=== PATIENT | male | born 1975 | race African-American/Black ===

== ENCOUNTER 2018-01-21 14:35 | Emergency (ER) | payer OTHER ==
[2018-01-21 15:08] VITALS: BP 149/100
--- NOTE | 2018-01-21 16:18 | UC ---
Laceration HPI - HPI Summary HPI Summary: 42 gentleman c/o Head laceration, occurred this afternoon at work. He stood up , striking top of head against metal pipes. No loc. No vis / aud changes. No other pain c/o, no report neck pain. Pain at head at site of lac. - History Of Current Complaint Chief Complaint: UCHeadInjury Stated Complaint: HEAD INJURY Time Seen by Provider: 01/21/18 16:17 Hx Obtained From: Patient Pain Intensity: 8 - Allergies/Home Medications Allergies/Adverse Reactions: Allergies Allergy/AdvReac Type Severity Reaction Status Date / Time No Known Allergies Allergy Verified 01/21/18 15:09 PMH/Surg Hx/FS Hx/Imm Hx Previously Healthy: Yes - Surgical History Surgical History: None - Family History Known Family History: Positive: Unknown - Social History Alcohol Use: None Substance Use Type: None Smoking Status (MU): Never Smoked Tobacco Review of Systems Constitutional: Negative Skin: Other - see hpi Eyes: Negative ENT: Negative Respiratory: Negative Cardiovascular: Negative Gastrointestinal: Negative Genitourinary: Negative Motor: Other - see hpi Neurovascular: Other - see hpi Musculoskeletal: Negative Neurological: Negative Psychological: Negative Is Patient Immunocompromised?: No All Other Systems Reviewed And Are Negative: Yes Physical Exam Triage Information Reviewed: Yes Appearance: Well-Appearing, Well-Nourished Vital Signs: Initial Vital Signs Temp 98.7 F 01/21/18 15:05 Pulse 88 01/21/18 15:05 Resp 18 01/21/18 15:05 BP 149/100 01/21/18 15:05 Pulse Ox 100 01/21/18 15:05 Vital Signs Reviewed: Yes Eye Exam: Normal - grossly normal ENT Exam: Normal - grossly normal Neck exam: Normal Neck: Positive: Supple, Nontender Respiratory Exam: Normal - no tachypnea, no dyspnea RR regular Cardiovascular Exam: Normal - HR regular. Nondiaphoretic. Abdominal Exam: Normal - sitting up, no c/o Musculoskeletal Exam: Normal - moves x 4 ext's. gait steady. Neurological Exam: Normal - CN 1-12 intact + sense smell Facial expressions symmetric. Psychological Exam: Normal - conversing easily and appropriately Skin Exam: Other - Laceration on top of head. L 3cm x W 0.3cm x depth 0.5cm. Lac is F-shaped, with Lateral lac approx 2cm. No bone visible, palpable by probe Bleeding controlled, oozing with examination. Laceration Course/Dx - Course/Dx Course Of Treatment: Laceration repair. Irrigated by RN. Time out performed. Local anesthesia with 6cc 2% lidocaine, no epi. [place] # 7 applied. Tolerated procedure well. Bandage applied by RN. Reviewed wound instructions, emphasized avoid sun exposure, short and retirement. Questions as posed answered to the best of my ability. Bacitracin, bandage by RN. Tetanus booster here - Differential Dx - Laceration/Wound Provider Diagnoses: Head / scalp laceration Discharge - Sign-Out/Discharge Documenting (check all that apply): Patient Departure - Discharge Plan Condition: Stable Disposition: HOME Prescriptions: Ibuprofen TAB* [Motrin TAB* 600 MG] 600 mg PO Q8H PRN #30 tab PRN Reason: Pain Patient Education Materials: Head Injury (ED), Staple Care (ED), Diphtheria/ Acellular Pertussis/Tetanus Booster Vaccine (By injection) Forms: *Work Release Referrals: [facility] [place] [facility] [Outside] No Primary Care Phys,NOPCP [Primary Care Provider] - Additional Instructions: Follow up in 2 - 3 days for wound check. Follow up can be with primary care physician, convenient care, or Emerg Department. Seek medical attention for worse or new problems. Avoid astringents. 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 Shampoo - hold off x at least 3 days. - Billing Disposition and Condition Condition: STABLE Disposition: Home
[2018-01-21] MEDS ORDERED: Lidocaine 2% PF * 5 ML VIAL IV ONE (16:31)
[2018-01-21] MEDS ORDERED: Tetan/Diph/Pertus SYR(Tdap)* 0.5 ML SYR(BOOSTRIX) use SYR IM ONE (16:32)
== END 2018-01-21 17:25 | disposition home or self-care (01) ==
LOC: UCEAST 14:35
DX: S01.01XA Laceration without foreign body of scalp, initial encounter (principal); W22.8XXA Striking against or struck by other objects, initial encounter; Y93.9 Activity, unspecified; Y99.9 Unspecified external cause status
CPT/HCPCS: 12002; 90715; 99202; G0463

== ENCOUNTER 2018-01-24 20:17 | Emergency (ER) | payer OTHER ==
--- NOTE | 2018-01-24 20:35 | UC ---
HPI Wound/Suture Re-check - HPI Summary HPI Summary: 42-year-old male presents to urgent care for wound recheck after scalp laceration sustained 3 days ago while at work. He had staple repair at [facility] and was told to come in for wound check in 3 days. He states that he has minor soreness but no headaches, vomiting, visual changes. His gait and balance have been normal. He did receive a tetanus shot there. He is not on antibiotic. - History Of Current Complaint Stated Complaint: HEAD INJURY x3 days AGO Time Seen by Provider: 01/24/18 20:20 Hx Obtained From: Patient - Allergies/Home Medications Allergies/Adverse Reactions: Allergies Allergy/AdvReac Type Severity Reaction Status Date / Time No Known Allergies Allergy Verified 01/21/18 15:09 PMH/Surg Hx/FS Hx/Imm Hx Previously Healthy: Yes - Surgical History Surgical History: None - Family History Known Family History: Positive: Unknown - Social History Alcohol Use: None Substance Use Type: None Smoking Status (MU): Never Smoked Tobacco Review of Systems Constitutional: Negative Skin: Other - repaired laceration Neurological: Other - denies headache All Other Systems Reviewed And Are Negative: Yes Physical Exam Triage Information Reviewed: Yes Appearance: Well-Appearing, No Pain Distress Vital Signs Reviewed: Yes Eye Exam: Normal Neurological Exam: Other - normal gait. AAO. Skin Exam: Other - stellate scalp laceration R apex is healing well and dressed with bacitracin. No breakdown, bleeding. No significant underlying hematoma. 7 south are intact. Skin: Negative: breakdown, significant lesion(s) Course/Dx - Course Course Of Treatment: Well-appearing stapled scalp laceration. Not due for his staple removal at this point. Likely can be removed in a total of 7-10 days which is 4-7 days at this point. - Differential Dx - Laceration/Wound Provider Diagnoses: Scalp laceration wound recheck Discharge - Sign-Out/Discharge Documenting (check all that apply): Patient Departure - Discharge Plan Condition: Good Disposition: HOME Referrals: No Primary Care Phys,NOPCP [Medical Doctor] - Additional Instructions: Follow-up in 4-7 days for staple removal. This can be accomplished at an urgent care, ER or your doctor's office. Your previously given referral to primary care physician. Make sure that you informed them this is a Worker's Comp.-related issue. - Billing Disposition and Condition Condition: GOOD Disposition: Home
[2018-01-24 20:43] VITALS: BP 149/107
== END 2018-01-24 20:41 | disposition home or self-care (01) ==
LOC: UCCORT 20:17
DX: S01.01XD Laceration without foreign body of scalp, subsequent encounter (principal); X58.XXXD Exposure to other specified factors, subsequent encounter
CPT/HCPCS: 99211; G0463

== ENCOUNTER 2018-02-01 19:03 | Emergency (ER) | payer OTHER ==
[2018-02-01 19:27] VITALS: BP 136/101
--- NOTE | 2018-02-01 19:51 | UC ---
HPI Wound/Suture Re-check - HPI Summary HPI Summary: Patient is a 42-year-old male here for removal of south. He sustained a scalp laceration at work about 10 days ago. Denies any concerns. He has no pain. - History Of Current Complaint Chief Complaint: UCLaceration Stated Complaint: STAPLE REMOVAL Time Seen by Provider: 02/01/18 19:45 Hx Obtained From: Patient Onset/Duration: Gradual Onset Pain Intensity: 0 Pain Scale Used: 0-10 Numeric - Allergies/Home Medications Allergies/Adverse Reactions: Allergies Allergy/AdvReac Type Severity Reaction Status Date / Time No Known Allergies Allergy Verified 02/01/18 19:27 Home Medications: Home Medications NK [No Home Medications Reported] 02/01/18 [History Confirmed 02/01/18] PMH/Surg Hx/FS Hx/Imm Hx Previously Healthy: Yes - Surgical History Surgical History: None - Family History Known Family History: Positive: Unknown - Social History Alcohol Use: Weekly Alcohol Amount: once a week Substance Use Type: None Smoking Status (MU): Never Smoked Tobacco Review of Systems Constitutional: Negative Skin: Negative Eyes: Negative ENT: Negative Respiratory: Negative Cardiovascular: Negative Gastrointestinal: Negative Genitourinary: Negative Motor: Negative Neurovascular: Negative Musculoskeletal: Negative Neurological: Negative Psychological: Negative Is Patient Immunocompromised?: No All Other Systems Reviewed And Are Negative: Yes Physical Exam Triage Information Reviewed: Yes Appearance: Well-Appearing, No Pain Distress, Well-Nourished Vital Signs: Initial Vital Signs Temp 97.4 F 02/01/18 19:24 Pulse 77 02/01/18 19:24 Resp 17 02/01/18 19:24 BP 136/101 02/01/18 19:24 Pulse Ox 99 02/01/18 19:24 Vital Signs Reviewed: Yes Eyes: Positive: Conjunctiva Clear ENT: Positive: Hearing grossly normal. Negative: Nasal congestion, Nasal drainage, Trismus, Muffled voice, Hoarse voice Neck: Positive: Supple Respiratory: Positive: No respiratory distress Cardiovascular: Positive: RRR, No Murmur Neurological: Positive: Alert Psychological Exam: Normal Skin Exam: Other - HEALING SCALP LAC- ALL SOUTH REMOVED Course/Dx - Differential Dx - Laceration/Wound Provider Diagnoses: SCALP LACERATION. STAPLE REMOVAL Discharge - Sign-Out/Discharge Documenting (check all that apply): Patient Departure - Discharge Plan Condition: Stable Disposition: HOME Referrals: Patrick Woody MD [Primary Care Provider] - Additional Instructions: SOUTH REMOVED CALL FOR ANY QUESTIONS RETURN FOR ANY PROBLEMS - Billing Disposition and Condition Condition: STABLE Disposition: Home
== END 2018-02-01 19:53 | disposition home or self-care (01) ==
LOC: UCCORT 19:03
DX: S01.01XD Laceration without foreign body of scalp, subsequent encounter (principal); X58.XXXD Exposure to other specified factors, subsequent encounter; Y92.9 Unspecified place or not applicable
CPT/HCPCS: 99211; G0463

== ENCOUNTER 2019-07-19 09:37 | Emergency (ER) | payer OTHER ==
[2019-07-19 10:40] VITALS: BP 160/96
--- NOTE | 2019-07-19 10:57 | UC ---
Knee Pain HPI - HPI Summary HPI Summary: left knee pain / swelling x 4 days s/p fall on stairs 4 days ago and banged his left knee to the stairs pain is 4 out 10 , worse with walking, better with elevation no fever, no chills - History of Current Complaint Chief Complaint: UCLowerExtremity Stated Complaint: S/P FALL LEFT KNEE/LEG INJURY Time Seen by Provider: 07/19/19 10:41 Hx Obtained From: Patient Onset/Duration: Sudden Onset, Lasting Days - 4, Still Present Severity Initially: Moderate Severity Currently: Moderate Pain Intensity: 4 Character: Throbbing Aggravating Factor(s): Movement Alleviating Factor(s): Rest, Cold Associated Signs And Symptoms: Positive: Swelling, Weakness. Negative: Redness , Bruising, Fever, Numbness, Tingling Able to Bear Weight: Yes - Allergies/Home Medications Allergies/Adverse Reactions: Allergies Allergy/AdvReac Type Severity Reaction Status Date / Time No Known Allergies Allergy Verified 07/19/19 10:40 PMH/Surg Hx/FS Hx/Imm Hx Previously Healthy: Yes - Surgical History Surgical History: None - Family History Known Family History: Positive: Unknown - Social History Alcohol Use: Weekly Alcohol Amount: once a week Substance Use Type: None Smoking Status (MU): Never Smoked Tobacco Review of Systems All Other Systems Reviewed And Are Negative: Yes Is Patient Immunocompromised?: No Physical Exam Triage Information Reviewed: Yes Appearance: Well-Appearing, Well-Nourished, Pain Distress Vital Signs: Initial Vital Signs Temp 97.6 F 07/19/19 10:34 Pulse 127 07/19/19 10:34 Resp 18 07/19/19 10:34 BP 160/96 07/19/19 10:34 Pulse Ox 99 07/19/19 10:34 Vital Signs Reviewed: Yes Eyes: Positive: Conjunctiva Clear Neck: Positive: Supple Respiratory: Positive: Chest non-tender, Lungs clear, Normal breath sounds Cardiovascular: Positive: Tachycardia Musculoskeletal: Positive: Other: - left knee : large effusion / swellen , diffuse tenderness, limited ROM on Flexion / extension. limited strength, stable ligaments Diagnostics - Radiology No standard instances Radiology Interpretation Completed By: Radiologist Summary of Radiographic Findings: xray left knee: 4 views of the left knee demonstrates no fracture or dislocation. Soft tissue swelling is noted. Likely joint effusion is noted. IMPRESSION: Joint effusion. No fracture is identified. Knee Pain Course/Dx - Differential Dx/Diagnosis Provider Diagnosis: Contusion of left knee, Effusion, left knee Discharge ED - Sign-Out/Discharge Documenting (check all that apply): Patient Departure All imaging exams completed and their final reports reviewed: Yes - Discharge Plan Condition: Stable Disposition: HOME Patient Education Materials: Swollen Knee Joint (ED) Referrals: Kilo Trimble MD [Medical Doctor] - As Soon As Possible Patrick Woody MD [Primary Care Provider] - Additional Instructions: will have your see ortho jumana , may need joint aspiration , may improve your knee pain - Billing Disposition and Condition Condition: STABLE Disposition: Home
== END 2019-07-19 11:21 | disposition home or self-care (01) ==
LOC: UCCORT 09:37
DX: S80.02XA Contusion of left knee, initial encounter (principal); M25.462 Effusion, left knee; W10.9XXA Fall (on) (from) unspecified stairs and steps, initial encounter; Y92.9 Unspecified place or not applicable
CPT/HCPCS: 99211; G0463